=== PATIENT | female | born 1935 | race Caucasian/White ===

== ENCOUNTER → 2016-08-14 | Outpatient (CLI) | payer OTHER | LOC: BRMIMAGING 14:54 | PROVIDERS: ATTEND Physician Assistant Medical | DX: M11.231 Other chondrocalcinosis, right wrist (principal); M85.88 Other specified disorders of bone density and structure, other site | CPT/HCPCS: 73090-PO ==

== ENCOUNTER → 2017-06-10 | Outpatient (CLI) | payer OTHER | LOC: BRMIMAGING 16:15 | PROVIDERS: ATTEND Family Medicine | DX: J98.4 Other disorders of lung (principal); I70.0 Atherosclerosis of aorta | CPT/HCPCS: 71020-PO ==

== ENCOUNTER → 2018-06-26 | Outpatient (CLI) | payer OTHER | LOC: BRMIMAGING 10:49 | PROVIDERS: ATTEND Family Medicine | DX: R05 Cough (principal) | CPT/HCPCS: 71046-PO ==